=== PATIENT | female | born 1975 | race Asian ===

== ENCOUNTER 2017-09-30 11:07 | Day surgery (SDC) | payer BC ==
[~2017-09-30 11:07] MED LIST: Buffered Lidocaine 0.9% SYRIN* 5 ML/SYR SYRINGE INTRADERM ONE; Dexamethasone TAB* 4 MG PO ONE; DiMENhydriNATE IV* 50 MG/ML VIAL IV PUSH PRN; Famotidine IV* 10 MG/ML 2 ML (20 mg) IV ONE; Morphine INJ* 2 MG/ML 1 ML CARPUJECT IV PRN; Naloxone* 0.4 MG/ML 1 ML VIAL IV PRN; Ondansetron TAB* 4 MG PO ONE; PROCHLORPERAZINE INJ 5 MG/ML 2 ML VIAL IV PRN; Scopolamine 1.5 mg* PATCH TRANSDERM PRN; fentaNYL* 50 MCG/ML 2 ML VIAL (100 MCG VIAL) IV PRN; oxyCODONE/Acetamin 5/325 MG* TAB PO PRN
[2017-09-30] MEDS ORDERED: Buffered Lidocaine 0.9% SYRIN* 5 ML/SYR SYRINGE ONE (11:27)
[2017-09-30] MEDS ORDERED: Ondansetron ODT TAB* 4 MG ONE (11:27)
[2017-09-30] MEDS ORDERED: Famotidine IV* 10 MG/ML 2 ML (20 mg) ONE (11:27)
[2017-09-30] MEDS ORDERED: Dexamethasone TAB* 4 MG ONE (11:27)
[2017-09-30] MEDS ORDERED: Midazolam* 1 MG/ML 5 ML VIAL (5 MG) ONE (12:03)
[2017-09-30] MEDS ORDERED: fentaNYL* 50 MCG/ML 2 ML VIAL (100 MCG VIAL) ONE ×2 (12:03→15:41)
[2017-09-30] MEDS ORDERED: Lidocaine 4% TOPICAL* 50 ML TOP.SOLN ONE (14:19)
[2017-09-30] MEDS ORDERED: Lidocain 1% EPI 1:100,000 * 30 ML MDV ONE (14:19)
[2017-09-30] MEDS ORDERED: Oxymetazoline 0.05% NASAL SPR* 15 ML BTL ONE (14:19)
[2017-09-30] MEDS ORDERED: Propofol* 10 MG/ML 20 ML BTL IV PUSH ONE (15:02)
[2017-09-30] MEDS ORDERED: Lidocaine 2% PF * 5 ML VIAL ONE (15:02)
[2017-09-30] MEDS ORDERED: PROCHLORPERAZINE INJ 5 MG/ML 2 ML VIAL ONE (15:02)
[2017-09-30] MEDS ORDERED: oxyCODONE/Acetamin 5/325 MG* TAB ONE (15:37)
[2017-09-30] MEDS ORDERED: Scopolamine 1.5 mg* PATCH ONE (15:37)
[2017-09-30] MEDS ORDERED: Ibuprofen TAB* 400 MG ONE (15:41)
[2017-09-30 16:22] VITALS: BP 133/83
--- NOTE | 2017-10-01 08:58 | OP ---
DATE OF OPERATION: 09/30/17 - SDS DATE OF : 79. ANESTHESIA: Laryngeal mask airway anesthesia. SURGEON: John Marr MD PRE-OP DIAGNOSIS: Left sphenoidal sinusitis. POST-OP DIAGNOSIS: Left sphenoidal sinusitis. OPERATIVE PROCEDURE: Endoscopic sinus surgery with image guidance for left sphenoidotomy. COMPLICATIONS: None. DISPOSITION: Good. SPECIMEN: None. BLOOD LOSS: None. DESCRIPTION OF PROCEDURE: The patient was taken to the operating room, placed in the supine position on the operating table. General anesthesia was induced and maintained with laryngeal mask airway anesthesia. Nose was packed with cottonoids impregnated with oxymetazoline and 4% lidocaine. She was registered to the [employer] and using the image-guided sinus surgery instruments with the registered probe and suction, I performed the surgery and on the left side, I injected her middle turbinate posterior septum and lateralized the middle turbinate. I was able to go back around this to rostrum of the sphenoidal sinus and using the guided probe, confirmed the anterior wall of the sphenoid sinus and I was able to find the ostium. I used the mushroom punch to widen this and passed the scope in to look around. There was no tissue that I felt needed removal. The patient tolerated the procedure well, no complications, transferred to the recovery room in stable condition. [id number]/[facility] #: [id number] [facility]OSPITALGloria
[2017-10-03] MEDS ORDERED: Scopolamine PATCH Remove* 1 NOTE MISC PATCH OFF ONE (05:41)
== END 2017-09-30 16:38 | disposition home or self-care (01) ==
LOC: OR 11:07
PROVIDERS: ATTEND Otolaryngology
DX: J32.3 Chronic sphenoidal sinusitis (principal); J30.9 Allergic rhinitis, unspecified
CPT/HCPCS: 81025; A9270-GY; J0780; J2250; J2704; J3010; J8540

== ENCOUNTER → 2018-04-16 11:31 | Emergency (ER) | payer BC ==
[2018-04-16 12:03] LABS: Urine Appearance Clear; Urine Bilirubin Negative (Negative); Urine Blood Negative (Negative); Urine Color Straw; Urine Glucose Negative (Negative); Urine Ketones Negative (Negative); Urine Nitrite Negative (Negative); Urine Protein Negative (Negative); Urine Specific Gravity 1.003 (1.010-1.030); Urine Urobilinogen Negative (Negative)
--- OUTSIDE RECORDS SUMMARY | 2018-04-16 12:06 | XMS REPORT | Continuity of Care Document ---
:1975 External Reference #:[id number] Author Name Marilee Rosales Care Team Providers Name Role Phone Cathi Anderson MD Primary Care Physician Unavailable Payers Type Date Identification Numbers Payment Provider Subscriber Policy Number: [id number] [employer]ets Mirna Griffin PayID: [id number] [address] [address] [place] [id number] Advance Directives Description No Information Available Problems Date Description Provider Status Onset: 08/10/2017 Abnormal results function studies of Lamont Hopper M.D. Active central nervous system Family History Date Family Member(s) Problem(s) Comments General Osteoporosis General Stomach Cancer Father Osteoporosis Father Hypertension Father Diabetes Father Stroke Mother Heart Disease Siblings 3 Social History Type Date Description Comments Sex Unknown Marital Status Single Occupation [employer] ETOH Use Denies alcohol use Tobacco Use Start: Unknown Patient has never smoked Recreational Drug Use Denies Drug Use Smoking Status Reviewed: 03/22/18 Patient has never smoked Exercise Type/Frequency Exercises regularly Allergies, Adverse Reactions, Alerts Description No Known Drug Allergies Medications Medication Date Status Form Strength Qnty SIG Indications Ordering Provider Magnesium 01/31/ Active Tablets 500mg 60tab take one 2017 s capsule/tab Lyubov, let daily M.D. by mouth Iron Chews 01/31/ Active Chewtabs 15mg 90uni take one Pediatric 2017 ts capsule/tab Lyubov, let daily M.D. by mouth Ointment Jar 10/20/ Active Misc 2Oz 1unit Natural cbd 2017 s oil Use Lyubov, daily to M.D. help chronic pain and myalgias Naltrexone HCL 10/20/ Active Powder 15gm 4.5 mg 2017 compounded Lyubov, in capsules M.D. by mouth every day Magnesium Oxide 10/09/ Active Tablets 400mg 90tab 1 by mouth G43.009 Lamont S. 2018 s every day Idalia Hopper Riboflavin 10/09/ Active Tablets 400mg 90tab 1 by mouth G43.009 Lamont Tineo 2017 s every day Idalia Hopper Cytomel 01/08/ Hx Tablets 25mcg Lamont Tineo 2017 - Ruchi MGinger 2017 Wellbutrin SR 10/09/ Hx Tablets ER 100mg 30tab 1 po qam R53.83 Lamont Tineo 2017 - 12HR carey Hopper MReneeDRenee 2017 No Active 09/21/ Hx Unknown Medications 2017 - 2017 No Active 06/12/ Hx Unknown Medications 2017 - 2017 Levothyroxine / Hx Tablets 50mcg 1 by mouth Unknown Sodium 0000 - every day (not 2018 taking) Multivitamin // Hx Tablets 1 by mouth Unknown Adult 0000 every day [place] 3-6-9 00/00/ Hx Capsules Unknown Complex 0000 Bone Density / Hx Tablets 300-200mg- Unknown 0000 Unit Turmeric / Hx Capsules Unknown 0000 Magnesium // Hx Capsules otc once a Unknown 0000 day pt states she has not been taking Omeprazole / Hx Capsules 40mg 1 by mouth Unknown 0000 [address] every day Vitamin B-2 / Hx Tablets 100mg 4 by mouth Unknown 0000 - every day 2017 Immunizations CPT Code Status Date Vaccine Lot # [id number] Given 01/20/2018 Influenza Virus Vaccine, Quadrivalent, Split, [id number] Preservative Free Vital Signs Date Vital Result Comment 03/22/2018 8:25am Height 66 inches 5'6" Weight 126.25 lb Heart Rate 76 /min BP Systolic Sitting 106 mmHg Rue reg cuff BP Diastolic Sitting 76 mmHg Rue reg cuff Respiratory Rate 16 /min O2 % BldC Oximetry 98 % On Ra BMI (Body Mass Index) 20.4 kg/m2 01/20/2018 12:53pm Height 66 inches 5'6" Weight 130.00 lb Heart Rate 84 /min BP Systolic Sitting 92 mmHg BP Diastolic Sitting 66 mmHg Respiratory Rate 14 /min Pain Level 8 BMI (Body Mass Index) 21.0 kg/m2 01/08/2018 3:51pm Height 66 inches 5'6" Weight 130.50 lb Heart Rate 60 /min BP Systolic 90 mmHg BP Diastolic 70 mmHg BMI (Body Mass Index) 21.1 kg/m2 01/04/2018 9:08am Height 66 inches 5'6" Weight 133.12 lb Heart Rate 78 /min BP Systolic Sitting 110 mmHg Lue regular cuff BP Diastolic Sitting 72 mmHg Lue regular cuff Respiratory Rate 12 /min O2 % BldC Oximetry 98 % BMI (Body Mass Index) 21.5 kg/m2 Neck Circumference in inches 13 10/20/2017 1:45pm Height 66 inches 5'6" Weight 131.25 lb Heart Rate 68 /min BP Systolic Sitting 108 mmHg BP Diastolic Sitting 68 mmHg Pain Level 8 O2 % BldC Oximetry 97 % BMI (Body Mass Index) 21.2 kg/m2 10/09/2017 3:07pm Height 66 inches 5'6" Weight 132.12 lb Heart Rate 68 /min BP Systolic 110 mmHg BP Diastolic 64 mmHg BMI (Body Mass Index) 21.3 kg/m2 09/21/2017 10:19am Height 66 inches 5'6" Weight 132.00 lb Heart Rate 72 /min BP Systolic 114 mmHg BP Diastolic 78 mmHg Respiratory Rate 16 /min Body Temperature 99.0 F BMI (Body Mass Index) 21.3 kg/m2 08/20/2017 2:46pm Height 66 inches 5'6" Weight 132.50 lb Heart Rate 80 /min BP Systolic 110 mmHg BP Diastolic 70 mmHg Body Temperature 100.0 F O2 % BldC Oximetry 98 % BMI (Body Mass Index) 21.4 kg/m2 08/10/2017 2:08pm Height 66 inches 5'6" Weight 128.00 lb Heart Rate 76 /min BP Systolic 112 mmHg BP Diastolic 80 mmHg Respiratory Rate 14 /min BMI (Body Mass Index) 20.7 kg/m2 06/22/2017 1:50pm Height 66 inches 5'6" Weight 131.25 lb Heart Rate 72 /min BP Systolic Sitting 108 mmHg BP Diastolic Sitting 73 mmHg Respiratory Rate 14 /min Pain Level 7 BMI (Body Mass Index) 21.2 kg/m2 06/12/2017 10:28am Height 66 inches 5'6" Weight 132.38 lb Heart Rate 72 /min BP Systolic Sitting 140 mmHg BP Diastolic Sitting 84 mmHg Respiratory Rate 14 /min Pain Level 6 BMI (Body Mass Index) 21.4 kg/m2 Results Test Date Facility Test Result H/L Range Note Laboratory test 01/20/2018 [facility] Vitamin D TNP () [address] 1,25[place] [address] [phone] 1,25 Dihydroxy 01/20/2018 [facility] Vitamin D 1,25 48 pg/mL 18-[address] (Oh) 2, [place] [address] [phone] Vitamin D3 1,25 (Oh) 2 48 pg/mL Vitamin D2 1,25 (Oh) 2 <8 pg/mL 2 Vitamin B6 01/20/2018 [facility] Pyridoxal 69 g/L Abnormal 5 -[address] 5[place] [address] [phone] Pyridoxic Acid 20 g/L 3-30 4 Laboratory test 01/20/2018 [facility] Vitamin B1 153 nmol/L 70-[address] (Whole Blood) [place] [address] [phone] T3 Reverse 9.9 ng/dL Abnormal 10-24 6 Retic Count 01/20/2018 [facility] Retic Count 0.6 % N 0.5-1.[address] [place] [address] [phone] Corrected Retic Count 0.5 % N 0.5-1.5 Maturation Factor Retic 1.5 Retic Index 0.30 Mean Retic Volume 98.7 Immature Retic Fraction 0.19 RBC Retic Count 4.48 10^6/uL Low 4.6-6.2 Hematocrit for Retic CNT 36 % N 35-47 Laboratory test 01/20/2018 [facility] Creatine 56 U/L N 10- [address] Kinase(CK) [place] [address] [phone] CBC Auto Diff 01/20/2018 [facility] White Blood 8.3 N 3.5- 10.[address] Count 10^3/[place] [address] [phone] Red Blood Count 4.48 10^6/uL N 4.00-5.40 Hemoglobin 12.0 g/dL N 12.0-16.0 Hematocrit 37 % N 35-47 Mean Corpuscular Volume 82 fL N 80-97 Mean Corpuscular Hemoglobin 27 pg N 27-31 Mean Corpuscular HGB Conc 33 g/dL N 31-36 Red Cell Distribution Width 13 % N 10.5-15 Platelet Count 167 10^3/uL N 150-450 Mean Platelet Volume 10.6 um3 High 7.4-10.4 Abs Neutrophils 5.8 10^3/uL N 1.5-7.7 Abs Lymphocytes 1.5 10^3/uL N 1.0-4.8 Abs Monocytes 0.8 10^3/uL N 0-0.8 Abs Eosinophils 0.1 10^3/uL N 0-0.6 Abs Basophils 0 10^3/uL N 0-0.2 Abs Nucleated RBC 0 10^3/uL Granulocyte % 69.9 % N 38-83 Lymphocyte % 18.2 % Low 25-47 Monocyte % 9.9 % High 0-7 Eosinophil % 1.7 % N 0-6 Basophil % 0.3 % N 0-2 Nucleated Red Blood Cells % 0 Iron & Iron Binding 01/20/2018 [facility] Iron 43 g/dL Low 50-212 [address] [place] [address] [phone] Unsaturated Iron Binding < 353 g/dL Total Iron Binding Capacity 368 g/dL N 250-450 Transferrin 263 mg/dL N 203-362 % Iron Saturation 12 % Low 15-55 Laboratory test 01/20/2018 [facility] Ferritin 34.9 ng/mL N 11 -307 [address] [place] [address] [phone] Osmolality Serum 290 mOsm/kg N 275-295 Magnesium 1.7 mg/dL Low 1.9-2.7 Basic Metabolic Panel 01/20/2018 [facility] Sodium 138 mmol/L N 135-[address] [place] [address] [phone] Potassium 3.8 mmol/L N 3.5-5.0 Chloride 106 mmol/L N 101-111 Co2 Carbon Dioxide 25 mmol/L N 22-32 Anion Gap 7 mmol/L N 2-11 Glucose 101 mg/dL High 70-100 Blood Urea Nitrogen 7 mg/dL N 6-24 Creatinine 0.71 mg/dL N 0.51-0.95 BUN/Creatinine Ratio 9.9 N 8-20 Calcium 8.8 mg/dL N 8.6-10.3 Egfr Non- 91.2 >60 Egfr 110.3 >60 7 Laboratory test 01/20/2018 [facility] Vitamin B1 153 nmol/L 70-[address] (Whole Blood) [place] [address] [phone] T3 Total 165 ng/dL N 87-178 T3 Reverse 9.9 ng/dL Abnormal 10-24 9 Thyroperoxidase AB 0.59 IU/mL N <9 Vitamin B6 01/20/2018 [facility] Pyridoxal 69 g/L Abnormal 5 -[address] 5[place] [address] [phone] Pyridoxic Acid 20 g/L 3-30 11 Laboratory test 01/20/2018 [facility] Vitamin D, 1,25 TNP () [address] [place] [address] [phone] Vitamin B12 And 01/20/2018 [facility] Vitamin B12 598 pg/mL N 180-914 13 Folate Serum [address] [place] [address] [phone] Folic Acid (Folate) 19.53 ng/mL >3.99 Laboratory test 01/20/2018 [facility] TSH (Thyroid 0.55 mcIU/mL N 0.34-5.60 [address] [facility] Stim [place]orm) [place] [address] [phone] T3 Free 4.20 pg/mL High 2.5-3.9 Free T4 (Free Thyroxine) 0.48 ng/dL Low 0.61-1.12 Urine 10/25/2017 [facility] Aminolevulinic 4 nmol/mL <=15 14 Aminolevulinic 101 [facility] [place] [place] [address] [phone] Urine Ala Interp See Comment 15 Ala Reviewed by See Comment 16 Amino Acid Screen 10/20/2017 [facility] Taurine 80 nmol/mL 42 -[address] [place] [address] [phone] Phosphoserine 0 nmol/mL <18 Threonine 99 nmol/mL 85-231 Phosphoethanolamine 3 nmol/mL <12 Serine 127 nmol/mL 63-187 Hydroxyproline 19 nmol/mL 4-29 Asparagine 68 nmol/mL 37-92 Aspartic Acid 3 nmol/mL <7 Glutamic Acid 42 nmol/mL 13-113 Ethanolamine 7 nmol/mL <67 Glutamine 655 nmol/mL 371-957 Sarcosine 2 nmol/mL <5 Proline 193 nmol/mL 97-368 1 Methylhistidine 6 nmol/mL <28 Glycine 289 nmol/mL 126-490 3-Methylhistidine 3 nmol/mL 2-9 Alanine 418 nmol/mL 200-579 Carnosine 0 nmol/mL <1 Citrulline 25 nmol/mL 17-46 Anserine 0 nmol/mL <1 D-Chhqy-T-Butyric Acid 17 nmol/mL 9-37 Homocitrulline 0 nmol/mL <2 Valine 250 nmol/mL 136-309 A-Aminoadipic Acid 1 nmol/mL <3 Cystine 32 nmol/mL 3-95 Unxyc-ivnjn-w-butyric 0 nmol/mL <2 Methionine 26 nmol/mL 4-44 B-Aminoisobutyric Acid 1 nmol/mL <5 Isoleucine 69 nmol/mL 36-107 Hydroxylysine 1 nmol/mL <2 Leucine 104 nmol/mL 68-183 Cystathionine <1 nmol/mL <5 Tyrosine 69 nmol/mL 31-90 Tryptophan 54 nmol/mL 29-77 Phenylalanine 79 nmol/mL 35-80 B-Alanine 16 nmol/mL <29 Ornithine 107 nmol/mL 38-130 Lysine 167 nmol/mL 103-255 Histidine 91 nmol/mL 39-123 Arginine 54 nmol/mL 32-120 Argininosuccinic Acid 0 nmol/mL <2 Allo-Isoleucine 1 nmol/mL <5 Amino Acid Quant Result See Comment 17 Laboratory test 10/20/2017 [facility] Zinc Serum 0.80 g/mL 0.66-1.10 18 [address] [place] [address] [phone] Copper, Serum 1.31 g/mL 0.75-1.45 19 Ceruloplasmin 35.7 mg/dL 20 TSH (Thyroid Stim Horm) 5.42 mcIU/mL N 0.34-5.60 Basic Metabolic Panel 10/20/2017 [facility] Sodium 138 mmol/L N 135-[address] [place] [address] [phone] Potassium 4.0 mmol/L N 3.5-5.0 Chloride 105 mmol/L N 101-111 Co2 Carbon Dioxide 20 mmol/L Low 22-32 Anion Gap 13 mmol/L High 2-11 Glucose 104 mg/dL High 70-100 Blood Urea Nitrogen 6 mg/dL N 6-24 Creatinine 0.73 mg/dL N 0.51-0.95 BUN/Creatinine Ratio 8.2 N 8-20 Calcium 9.4 mg/dL N 8.6-10.3 Egfr Non- 88.8 >60 Egfr 107.4 >60 21 Sodium Excretion 10/20/2017 [facility] Creatinine 0.71 mg/dL N 0.51-0.[address] [place] [address] [phone] Sodium, Serum 139 mmol/L N 135-145 Urine Random Creatinine 59.07 mg/dL Urine Random Sodium 178 mmol/L Renal Sodium Excretion 1.53 % 22 Laboratory test 09/17/2017 [facility] CSF Glucose 60 mg/dL N 40-[address] [place] [address] [phone] CSF Protein 28 mg/dL N 15-45 CSF Culture & 09/17/2017 [facility] CSF Culture SEE RESULT [address] [place] [place] [address] [phone] CSF Cell Count 09/17/2017 [facility] Body Fluid Cerebral [address] [place] [address] [phone] Body Fluid Appearance Clear Body Fluid Color Colorless CSF Tube # 4 Body Fluid Volume 8 mL Body Fluid WBC 1 /mcL Body Fluid RBC 0 /mcL Body Fluid Lymph 90 % Body Fluid [place] 10 % Body Fluid Total Cells Counted 10 Body Fluid Comment (SEE NOTE) 24 Fluid Reviewed By MD (SEE NOTE) 25 CSF Immunoglobulin 09/17/2017 [facility] CSF Immunoglobulin 0.53 <=0.85 G (Igg) [address] [place] [address] [phone] CSF Igg 2.5 mg/dL <=8.1 26 CSF Albumin 15.1 mg/dL <=27.0 27 CSF IgG/Albumin Ratio 0.17 <=0.21 CSF Immunoglobulin G Synthesis 0.00 mg/24h <=12 Immunoglobulin G 1410 mg/dL 767 - 1590 Albumin 4450 mg/dL 28 Serum IgG/Albumin Ratio 0.32 <=0.40 29 Oligoclonal Bands 09/17/2017 [facility] CSF Oligoclonal [address] [place] [address] [phone] Serum Oligoclonal Bands 2 bands Oligoclonal Proteins Interpret 0 bands <4 30 CBC Auto Diff 08/20/2017 [facility] White Blood 8.7 10^3/uL N 3.5-10.[address] [place] [address] [phone] Red Blood Count 4.48 10^6/uL N 4.0-5.4 Hemoglobin 11.9 g/dL Low 12.0-16.0 Hematocrit 36 % N 35-47 Mean Corpuscular Volume 81 fL N 80-97 Mean Corpuscular Hemoglobin 27 pg N 27-31 Mean Corpuscular HGB Conc 33 g/dL N 31-36 Red Cell Distribution Width 14 % N 10.5-15 Platelet Count 175 10^3/uL N 150-450 Mean Platelet Volume 10.6 um3 High 7.4-10.4 Abs Neutrophils 5.3 10^3/uL N 1.5-7.7 Abs Lymphocytes 2.3 10^3/uL N 1.0-4.8 Abs Monocytes 0.9 10^3/uL High 0-0.8 Abs Eosinophils 0.2 10^3/uL N 0-0.6 Abs Basophils 0 10^3/uL N 0-0.2 Abs Nucleated RBC 0 10^3/uL Granulocyte % 60.7 % N 38-83 Lymphocyte % 26.0 % N 25-47 Monocyte % 10.5 % High 0-7 Eosinophil % 2.5 % N 0-6 Basophil % 0.3 % N 0-2 Nucleated Red Blood Cells % 0 Fatty Acid 08/20/2017 [facility] Lauric Acid 84 nmol/mL 6-[address] C12:0 [place] [address] [phone] Myristic Acid C14:0 250 nmol/mL 30-450 Hexadecenoic Acid C16:1w9 59 nmol/mL 25-105 Palmitoleic Acid C16:1w7 175 nmol/mL 110-1130 Palmitic Acid C16:0 2589 nmol/mL 3967-1219 g-Linolenic Acid C18:3w6 102 nmol/mL 16-150 a-Linolenic Acid C18:3w3 93 nmol/mL 50-130 Linoleic Acid C18:2w6 2177 nmol/mL Abnormal 8360-0259 Oleic Acid C18:1w9 2938 nmol/mL 650-3500 Vaccenic Acid C18:1w7 233 nmol/mL Abnormal 280-740 Stearic Acid C18:0 1006 nmol/mL 590-1170 Epa C20:5w3 85 nmol/mL 14-100 Arachidonic Acid C20:4w6 586 nmol/mL 520-1490 [place] Acid C20:3w9 32 nmol/mL Abnormal 7-30 t-x-[id number] Acid C20:3w6 129 nmol/mL 50-250 Arachidic Acid C20:0 37 nmol/mL Abnormal 50-90 Dha C22:6w3 189 nmol/mL 30-250 Dpa C22:5w6 26 nmol/mL 10-70 Dpa C22:5w3 64 nmol/mL 20-210 Dta C22:4w6 27 nmol/mL 10-80 Docosenoic Acid C22:1 4 nmol/mL 4-13 Nervonic Acid C24:1w9 70 nmol/mL 60-100 Triene Tetraene Ratio 0.055 Abnormal 31 Total Saturated Acid 4.1 mmol/L 2.5-5.5 Total Monounsaturated Fatty Ac 3.5 mmol/L 1.3-5.8 Total Polyunsaturated Fatty Ac 3.5 mmol/L 3.2-5.8 Total w3 0.4 mmol/L 0.2-0.5 Total w6 3.0 mmol/L 3.0-5.4 Total Fatty Acids 11.1 mmol/L 7.3-16.8 Interpretation See Comment 32 Urinalysis Profile 08/20/2017 [facility] Urine Color Straw [address] [place] [address] [phone] Urine Appearance Clear Urine Specific [place] 1.011 N 1.010-1.030 Urine pH 5.0 N 5-9 Urine Urobilinogen Negative Negative Urine Ketones Negative Negative Urine Protein Negative Negative Urine Leukocytes Trace Abnormal Negative Urine Blood 1+ Abnormal Negative Urine Nitrite Negative Negative Urine Bilirubin Negative Negative Urine Glucose Negative Negative Urine White Blood Cell Trace(0-5/hpf) Absent Urine Red Blood Cell Trace(0-2/hpf) Absent Urine Bacteria Absent Absent Urine Culture And 08/20/2017 [facility] Urine Culture SEE RESULT [address] [place] [address] [phone] Laboratory test 08/12/2017 [facility] Lactic Acid 0.9 mmol/L N 0.5-[address]0 [place] [address] [phone] Pyruvic Acid 08/12/2017 [facility] Pyruvic Acid 0.10 mmol/L 0.08- [address] mmol/L 0.16 [place] [address] [phone] Pyruvic Acid mg/dL 0.9 mg/dL 0.7-1.4 35 Laboratory test 08/10/2017 [facility] Lactic Acid 0.7 mmol/L N 0.5-2.[address] [place] [address] [phone] Creatine Kinase(CK) 41 U/L N 10-223 Immunoglobulins 06/26/2017 [facility] Immunoglobulin G 1210 767 - 37 Serum Quant 101 mg/dL 1590 [place] [address] [phone] Immunoglobulin M 129 mg/dL 37 - 286 Immunoglobulin A 180 mg/dL 61 - 356 Basic Metabolic 06/26/2017 [facility] Sodium 138 mmol/L Low 139-[address] [place] [address] [phone] Potassium 4.4 mmol/L N 3.5-5.0 Chloride 104 mmol/L N 101-111 Co2 Carbon Dioxide 28 mmol/L N 22-32 Anion Gap 6 mmol/L N 2-11 Glucose 88 mg/dL N 70-100 Blood Urea Nitrogen 6 mg/dL N 6-24 Creatinine 0.69 mg/dL N 0.51-0.95 BUN/Creatinine Ratio 8.7 N 8-20 Calcium 9.2 mg/dL N 8.6-10.3 Egfr Non- 94.7 >60 Egfr 121.8 >60 38 Lipid Profile 06/26/2017 [facility] Triglycerides 87 mg/dL 39 (Trig/Chol/HDL) [address] [place] [address] [phone] Cholesterol 206 mg/dL 40 HDL Cholesterol 52.4 mg/dL 41 LDL Cholesterol 136 mg/dL 42 Jeannette Igg AB Reflex 06/12/2017 [facility] SS-A/Ro Antibody <0.[address] [place] [address] [phone] SS-B/La Antibody <0.2 U 44 Sm (Blum) IgG Antibody <0.2 U 45 U1-nRNP Antibody 0.2 U 46 Scl-70 (Scleroderma) Antibody 0.2 U 47 Jazzy-1 Antibody <0.2 U 48 Laboratory test 06/12/2017 [facility] Endomysial Abs Negative Negative [address] [place] [address] [phone] Hla B27 06/12/2017 [facility] Hla B27 Negative [address] [place] [address] [phone] Hla B27 Interp See Comment 51 Laboratory test 06/12/2017 [facility] Uric Acid 4.2 mg/dL N 2.3-6.[address] [place] [address] [phone] Rheumatoid Factor <10 IU/mL 0-14 52 Cyclic Citrullinated Pep Igg <15.6 U 53 Vitamin D, 1,25 Dihydroxy 70 pg/mL 18-78 54 Bone Alkaline Phosphatase, S 6.4 g/L 55 Serotonin Serum 144 ng/mL <=230 56 Food Allergy 06/12/2017 [facility] Egg White <0.35 kU/L [address] [place] [address] [phone] [place] Allergen IgE <0.35 kU/L 58 Egg Yolk Allergen IgE <0.35 kU/L 59 Peanut Allergen IgE <0.10 kU/L 60 Soybean Allergen IgE <0.35 kU/L 61 Wheat Allergen IgE <0.35 kU/L 62 Laboratory test 06/12/2017 [facility] Cow's Milk <0.35 kU/L [address] [place] [address] [phone] Cardiolipin 06/12/2017 [facility] Phospholipid Ab < 9.4 MPL 64 Igg/Igm [address] IgM, [place] [address] [phone] Phospholipid Ab IgG < 9.4 GPL 65 Laboratory test 06/12/2017 [facility] Ach Receptor 0.00 nmol/L <=0.[address] [place] [address] [phone] Anti Double Stranded Dna AB <12.3 IU/mL 67 Complement C3 88 mg/dL 75 - 175 68 Complement C4 19 mg/dL 14 - 40 69 Anca AB Ser If 06/12/2017 [facility] C-Anca Negative Negative [address] [place] [address] [phone] P-Anca Negative Negative 70 Laboratory test 06/12/2017 [facility] Creatine 61 U/L N 10- [address] Kinase(CK) [place] [address] [phone] Angiotensin Converting Enzyme 55 U/L Abnormal 8 - 53 71 Celiac Hla 06/12/2017 [facility] Hla-Dqa1 SEE BELOW [address] [place] [address] [phone] Hla-[id number] SEE BELOW 73 Celiac Gene Pairs Present? Equivocal Celiac Gene Interpretation See Comment 74 Celiac Panel 06/12/2017 [facility] Tissue Transglutaminase <1.2 U/mL [address] [place] [address] [phone] Immunoglobulin A 173 mg/dL 61 - 356 Celiac Interpretation See Comment 76 1 1,25-Dihydroxyvitamin D, S was cancelled on 01/28/2018 at 09:15; Assay temporarily down. Specimen forwarded to [facility] Test Performed by: [facility] [address] [place] [address] 2 Vitamin D3, 1,25(OH) indicates both endogenous production and supplementation. Vitamin D2, 1,25(OH)2 is an indicator of exogenous sources, such as diet or supplementation. Interpretation and therapy are based on measurement of Vitamin D, 1,25 (OH)2, Total. This test was developed and its analytical performance characteristics have been determined by [facility]. It has not been cleared or approved by the [place] Food and Drug Administration. This assay has been validated pursuant to the CLIA regulations and is used for clinical purposes. Test Performed at: [facility], [address] [place] [address] Cande Conley MD, PhD Test Performed by: [facility] [address] [place] [address] 3 In this sample, the elevated pyridoxal 5-phosphate is likely related to dietary supplementation. ADDITIONAL INFORMATION This test was developed and its performance characteristics determined by [facility] in a manner consistent with CLIA requirements. This test has not been cleared or approved by the U.S. Food and Drug Administration. 4 ADDITIONAL INFORMATION This test was developed and its performance characteristics determined by [facility] in a manner consistent with CLIA requirements. This test has not been cleared or approved by the U.S. Food and Drug Administration. Test Performed by: [facility] - [address] [address] 5 ADDITIONAL INFORMATION This test was developed and its performance characteristics determined by [facility] in a manner consistent with CLIA requirements. This test has not been cleared or approved by the U.S. Food and Drug Administration. Test Performed by: [facility] - [address] [address] 6 ADDITIONAL INFORMATION This test was developed and its performance characteristics determined by [facility] in a manner consistent with CLIA requirements. This test has not been cleared or approved by the U.S. Food and Drug Administration. Test Performed by: [facility] - [address] [address] 7 Because ethnic data is not always readily available, this report includes an eGFR for both -Americans and non- Americans. The National Kidney Disease Education Program (NKDEP) does not endorse the use of the MDRD equation for patients that are not between the ages of 18 and 70, are , have extremes of body size, muscle mass, or nutritional status, or are non- or non-. According to the National Kidney Foundation, irrespective of diagnosis, the stage of the disease is based on the level of kidney function: Stage Description GFR(mL/min/1.73 m(2)) 1 Kidney damage with normal or decreased GFR 90 2 Kidney damage with mild decrease in GFR 60-89 3 Moderate decrease in GFR 30-59 4 Severe decrease in GFR 15-29 5 Kidney failure <15 (or dialysis) 8 ADDITIONAL INFORMATION This test was developed and its performance characteristics determined by [facility] in a manner consistent with CLIA requirements. This test has not been cleared or approved by the U.S. Food and Drug Administration. Test Performed by: [facility] [place] [address] 9 ADDITIONAL INFORMATION This test was developed and its performance characteristics determined by [facility] in a manner consistent with CLIA requirements. This test has not been cleared or approved by the U.S. Food and Drug Administration. Test Performed by: [facility] [place] [address] 10 In this sample, the elevated pyridoxal 5-phosphate is likely related to dietary supplementation. ADDITIONAL INFORMATION This test was developed and its performance characteristics determined by [facility] in a manner consistent with CLIA requirements. This test has not been cleared or approved by the U.S. Food and Drug Administration. 11 ADDITIONAL INFORMATION This test was developed and its performance characteristics determined by [facility] in a manner consistent with CLIA requirements. This test has not been cleared or approved by the U.S. Food and Drug Administration. Test Performed by: [facility] [place] [address] 12 1,25-Dihydroxyvitamin D, S was cancelled on 01/28/2018 at 09:15; Assay temporarily down. Specimen forwarded to [facility] Test Performed by: [facility] - [address] [address] 13 Normal Range 180 to 914 Indeterminate Range 145 to 180 Deficient Range <145 14 START COLLECTION TIME 10/25/2017 @ 0700 eND COLLECTION TIME 10/26/2017 @ 0700 15 In this sample, the excretion of aminolevulinic acid was normal. ADDITIONAL INFORMATION Liquid Chromatography-Tandem Mass Spectrometry (LC-MS/MS) This test was developed and its performance characteristics determined by [facility] in a manner consistent with CLIA requirements. This test has not been cleared or approved by the U.S. Food and Drug Administration. 16 RESULT: Mercedez Mc M.D. Test Performed by: [facility] - [address] [address] 17 RESULT: In this sample, the amino acid profile was normal. ADDITIONAL INFORMATION Liquid Chromatography-Tandem Mass Spectrometry (LC-MS/MS) This test was developed and its performance characteristics determined by [facility] in a manner consistent with CLIA requirements. This test has not been cleared or approved by the U.S. Food and Drug Administration. Test Performed by: [facility] - [address] [address] 18 ADDITIONAL INFORMATION This test was developed and its performance characteristics determined by [facility] in a manner consistent with CLIA requirements. This test has not been cleared or approved by the U.S. Food and Drug Administration. Test Performed by: [facility] - [address] [address] 19 ADDITIONAL INFORMATION This test was developed and its performance characteristics determined by [facility] in a manner consistent with CLIA requirements. This test has not been cleared or approved by the U.S. Food and Drug Administration. Test Performed by: [facility] - [facility] [address] [place] [address] 20 REFERENCE VALUE 20.0 - 51.0 Test Performed by: [facility] - [facility] [address] [place] [address] 21 Because ethnic data is not always readily available, this report includes an eGFR for both -Americans and non- Americans. The National Kidney Disease Education Program (NKDEP) does not endorse the use of the MDRD equation for patients that are not between the ages of 18 and 70, are , have extremes of body size, muscle mass, or nutritional status, or are non- or non-. According to the National Kidney Foundation, irrespective of diagnosis, the stage of the disease is based on the level of kidney function: Stage Description GFR(mL/min/1.73 m(2)) 1 Kidney damage with normal or decreased GFR 90 2 Kidney damage with mild decrease in GFR 60-89 3 Moderate decrease in GFR 30-59 4 Severe decrease in GFR 15-29 5 Kidney failure <15 (or dialysis) 22 Fractional excretion of sodium in acute renal failure(FENa): If FENa is greater than 4%, consider PostRenal Failure Prerenal Failure Less than 1% Acute Tubular Necrosis Greater than 4% PostRenal Failure Greater than 4% 23 SEE RESULT BELOW Name: MIRNA GRIFFIN : [address]: Ezequiel Schilling MD Acct: [id number] Unit: [id number] AGE: 41 Location: PAIN Re09/17/17 SEX: F Status: REG REF SPEC: [id number] IVAN: 09/17/[address] [facility] [address]: Ezequiel Schilling MD REQ: [id number] RECD: 09/17/17 STATUS: YASMIN SUTTON DR: Wojciech Anderson MD _ SOURCE: CSF SPDESC: ORDERED: CSF Cult/GS Procedure Result Reported Site CSF Gram Stain Final 09/17/17- 1002 ML No Neutrophils Observed No Organisms Seen Preparation By Cytospin Smear CSF Culture Final 09/21/17- 0845 ML No Growth Day 4 * ML - Main Lab . END OF REPORT DEPARTMENT OF PATHOLOGY, [address] [place] [address] Raymundo Field M.D. Director [facility] # [id number] 24 Diff done on concentrated smear 25 No evidence of an acute inflammatory response. No evidence of malignancy. Reviewed by Jeanette Stephenson MD 26 ADDITIONAL INFORMATION This test has been modified from the landfill gas collection system operator's instructions. Its performance characteristics were determined by [facility] in a manner consistent with CLIA requirements. This test has not been cleared or approved by the U.S. Food and Drug Administration. 27 ADDITIONAL INFORMATION This test has been modified from the landfill gas collection system operator's instructions. Its performance characteristics were determined by [facility] in a manner consistent with CLIA requirements. This test has not been cleared or approved by the U.S. Food and Drug Administration. 28 REFERENCE VALUE 3200 - 4800 29 Test Performed by: [place] [address] 30 The oligoclonal band assay detected 3 or fewer unique IgG bands in the CSF. This is a negative result. Test Performed by: [facility] [place] [place] [address] 31 REFERENCE VALUE 0.010-0.038 32 In this sample, the concentration of linoleic acid was reduced. The triene/tetraene ratio was elevated. These findings are suggestive of a nutritional deficiency of essential fatty acids. ADDITIONAL INFORMATION Gas Chromatography-Mass Spectrometry (GC-MS) Stable Isotope Dilution Analysis This test was developed and its performance characteristics determined by [facility] in a manner consistent with CLIA requirements. This test has not been cleared or approved by the U.S. Food and Drug Administration. Test Performed by: [facility] - [address] [address] 33 SEE RESULT BELOW Name: MINRA GRIFFIN : [address]: Wojciech Mcarthur MD Acct: [id number] Unit: [id number] AGE: 41 Location: LAB Re08/20/17 SEX: F Status: REG REF SPEC: [id number] IVAN: 08/20/17-[address] [facility] [address]: Wojciech Mcarthur MD REQ: [id number] RECD: 08/20/174934 STATUS: COMP _ SOURCE: URINE SPDESC: ORDERED: Urine Culture Procedure Result Reported Site Urine Culture Final 08/22/17- 830 ML Organism 1 STAPHYLOCOCCUS AUREUS [place] Count 50-75,000 (Many) CFU/ML 1. STAPHYLOCOCCUS AUREUS M.I.C. RX --------- ------ Penicillin 0.12 S Gentamicin <=0.5 S Linezolid 2 S Nitrofurantoin 32 S Oxacillin 0.5 S * Quinupristin/Dalfopristin <=0.25 S Rifampin <=0.5 S Tetracycline >=16 R Trimethoprim/Sulfamethoxazole <=10 S Vancomycin 1 S Imipenem-Deduced S * Ampicillin/Sulbactam-Deduced S Cefazolin-Deduced S * These antibiotics are not available in the [facility] Formulary Contact the Microbiology Department for any additional antibiotic reporting. * ML - Main Lab . END OF REPORT DEPARTMENT OF PATHOLOGY, [address] [place] [address] Raymundo Field M.D. Director [facility] # [id number] 34 [facility] Severe Sepsis and Septic Shock Management Bundle Measure requires all lactic acids initially measuring >2.0 mmol/L be repeated. 35 ADDITIONAL INFORMATION This test was developed and its performance characteristics determined by [facility] in a manner consistent with CLIA requirements. This test has not been cleared or approved by the U.S. Food and Drug Administration. Test Performed by: [address] [address] 36 [facility] Severe Sepsis and Septic Shock Management Bundle Measure requires all lactic acids initially measuring >2.0 mmol/L be repeated. 37 Test Performed by: [address] [address] 38 Because ethnic data is not always readily available, this report includes an eGFR for both -Americans and non- Americans. The National Kidney Disease Education Program (NKDEP) does not endorse the use of the MDRD equation for patients that are not between the ages of 18 and 70, are , have extremes of body size, muscle mass, or nutritional status, or are non- or non-. According to the National Kidney Foundation, irrespective of diagnosis, the stage of the disease is based on the level of kidney function: Stage Description GFR(mL/min/1.73 m(2)) 1 Kidney damage with normal or decreased GFR 90 2 Kidney damage with mild decrease in GFR 60-89 3 Moderate decrease in GFR 30-59 4 Severe decrease in GFR 15-29 5 Kidney failure <15 (or dialysis) 39 Desirable: <150 Borderline High: 150-199 High: 200-499 Very High: >500 40 Desirable: <200 Borderline High: 200-239 High: >239 41 Low: <40 Desirable: 40-60 High: >60 42 Desirable: <100 Near Optimal: 100-129 Borderline High: 130-159 High: 160-189 Very High: >189 43 REFERENCE VALUE <1.0 (Negative) 44 REFERENCE VALUE <1.0 (Negative) 45 REFERENCE VALUE <1.0 (Negative) 46 REFERENCE VALUE <1.0 (Negative) 47 REFERENCE VALUE <1.0 (Negative) 48 REFERENCE VALUE <1.0 (Negative) Test Performed by: [facility] - [address] [address] 49 A negative serum IgA endomysial antibody is usually seen in normal individuals, however a diagnosis of celiac disease, dermatitis herpetiformis and other gluten sensitive disorders cannot be completely excluded, as this test may be negative in a subset of individuals with these disorders. If the clinical suspicion for one of these disorders is high, recommend further testing for gluten sensitivity as indicated by the Celiac Disease Comprehensive [place] ([place] Test [facility] Code CDCOM). In addition serum IgA endomysial antibody may also be negative in gluten-sensitive patients (with celiac disease, dermatitis herpetiformis or other gluten-sensitive disorders), who adhere to a strict gluten-free diet. ADDITIONAL INFORMATION This test has been modified from the landfill gas collection system operator's instructions. Its performance characteristics were determined by [facility] in a manner consistent with CLIA requirements. This test has not been cleared or approved by the U.S. Food and Drug Administration. Test Performed by: [facility] - [address] [address] 50 REFERENCE VALUE Not Applicable 51 RESULT: HLA-B27 antigen was not detected. ADDITIONAL INFORMATION Method: Flow Cytometry Performing Laboratory CLIA# [id number] Test Performed by: [address] [address] 52 Performed by [facility], [address] [place] [id number] [email or web address] Quan, Dawson Peña MD - Lab. Director Test Performed by: [facility] [address] [place] [id number] 53 REFERENCE VALUE <20.0 (Negative) Test Performed by: [facility] - [address] [address] 54 ADDITIONAL INFORMATION This test was developed and its performance characteristics determined by [facility] in a manner consistent with CLIA requirements. This test has not been cleared or approved by the U.S. Food and Drug Administration. Test Performed by: [facility] - [address] [address] 55 REFERENCE VALUE <=14 (Premenopausal) <=22 (Postmenopausal) Test Performed by: [facility] - [address] [address] 56 ADDITIONAL INFORMATION This test was developed and its performance characteristics determined by [facility] in a manner consistent with CLIA requirements. This test has not been cleared or approved by the U.S. Food and Drug Administration. Test Performed by: [facility] - [facility] [address] [place] [address] 57 Class 0 (Negative <0.35) 58 Class 0 (Negative <0.35) 59 Class 0 (Negative <0.35) 60 Class 0 (Negative <0.10) 61 Class 0 (Negative <0.35) 62 Class 0 (Negative <0.35) Test Performed by: [facility] - [place] [address] [place] [address] 63 Class 0 (Negative <0.35) 64 REFERENCE VALUE <15.0 (Negative) 65 REFERENCE VALUE <15.0 (Negative) Test Performed by: [address] [address] 66 ADDITIONAL INFORMATION This test was developed and its performance characteristics determined by [facility] in a manner consistent with CLIA requirements. This test has not been cleared or approved by the U.S. Food and Drug Administration. Test Performed by: [facility] - [address] [address] 67 REFERENCE VALUE <30.0 (Negative) Test Performed by: [address] [address] 68 Test Performed by: [address] [address] 69 Test Performed by: [address] [address] 70 Negative for cANCA and pANCA patterns by immunofluorescence. ADDITIONAL INFORMATION This test was developed and its performance characteristics determined by [facility] in a manner consistent with CLIA requirements. This test has not been cleared or approved by the U.S. Food and Drug Administration. Test Performed by: [facility] - [address] [address] 71 Test Performed by: [facility] - [address] [address] 72 RESULT: 01,02:01 REFERENCE VALUE Not Applicable 73 RESULT: 02:02,05:01 DQ Serologic Equivalent: 2,5 REFERENCE VALUE Not Applicable 74 While the patient lacks the gene pairs usually seen in celiac disease, there are rare exceptions in which celiac disease can occur with only one half of the gene pair (1% of all celiac) making celiac disease very unlikely. However, these genes can also be present in the normal population. ADDITIONAL INFORMATION Method: Molecular typing of HLA antigens performed using reverse SSOP and/or SSP methods, reported as serological equivalents and low to medium resolution molecular values. Performing Laboratory CLIA# [id number] Test Performed by: [facility] - [address] [address] 75 REFERENCE VALUE <4.0 (Negative) Test Performed by: [address] [address] 76 Negative serology. Celiac disease unlikely. However, approximately 10% of patients with celiac disease are seronegative. Also, patients who are already adhering to a gluten-free diet may be seronegative. If celiac disease is highly clinically suspected, consider HLA-DQ typing. Test Performed by: [facility] - [address] [address] Procedures Date Code Description Status 03/05/2018 31939 Polysomnography Sleep Staging 4+ Parameters Completed 01/12/2018 77680 Sleep Study Unattended,HRT Rate,Oxygen Sat,Resp Completed Effort/Airflow 09/21/2017 62423 Anoscopy Completed 07/07/2017 53839 ECHO Transthorasic Realtime 2D W Doppler & Color Flow Hosp Completed Encounters Type Date Location Provider Dx Diagnosis Office Visit 01/20/2018 Rheumatology Aretha Lee.10 Myalgia, 1:00p [facility] unspecified site D64.9 Anemia, unspecified E87.1 Hypo-osmolality and hyponatremia R53.83 Other fatigue 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 Z23 Encounter for immunization Office Visit 01/08/2018 Neurohospitalist Lamont Flores.02 Abnormal brain 3:30p Clinic Idalia Hopper scan F41.9 Anxiety disorder, unspecified Office Visit 01/04/2018 9:30a Pulmonology [facility] G47.9 Sleep disorder, [facility] unspecified Maddy R53.83 Other fatigue Office Visit 10/20/2017 2:00p Rheumatology Services Aretha Lee.1 My[facility] R51 Headache R20.8 Other disturbances of skin sensation M54.5 Low back pain E87.1 Hypo-osmolality and hyponatremia Office Visit 10/09/2017 [facility] Lamont Flores.02 Abnormal brain 3:30p Clinic Idalia Hopper scan R53.83 Other fatigue F41.9 Anxiety disorder, unspecified G43.009 Migraine w/o aura, not intractable, w/o status migrainosus Office Visit 09/21/2017 10:15a Surgical Raul Ibrahim, K64.9 Unspecified [facility], FACS hemorrhoids K64.4 Residual hemorrhoidal skin tags Office Visit 08/20/2017 2:40p Rheumatology Flynn Lee94.02 Abnormal brain [facility] scan R53.83 Other fatigue E78.00 Pure hypercholesterolemia, unspecified R10.11 Right upper quadrant pain Office Visit 08/10/2017 Garvin Lamont Tineo G43.009 Migraine w/o aura, 2:00p Neurologic Idalia Hopper not intractable, [facility] w/o status migrainosus R53.83 Other fatigue R94.02 Abnormal brain scan Office Visit 06/22/2017 1:40p Rheumatology Wojciech Mcarthur, R53.83 Other fatigue [facility] R51 Headache R76.0 Raised antibody titer M79.1 Myalgia Office Visit 06/12/2017 11:00a Rheumatology Wojciech Mcarthur, R76.0 Raised antibody [facility] titer R20.8 Other disturbances of skin sensation M79.1 Myalgia M79.673 Pain in unspecified foot M35.01 Sicca syndrome with keratoconjunctivitis M54.5 Low back pain K58.8 Other irritable bowel syndrome Plan of Treatment Future Appointment(s):05/18/2018 10:30 am - Gabriela De La Cruz DNP, RN, HIGHWAY TRUCK DRIVER- at [facility]04/22/2018 1:00 pm - Wojciech Mcarthur M.D. at [facility]ology [facility]07/02/2018 3:00 pm - Lamont Hopper M.D. at [facility]7303/22/2018 - Gabriela De La Cruz DNP, RN, HIGHWAY TRUCK DRIVER-BCG47.33 Obstructive sleep apnea (adult) (pediatric)New Orders:Sleep-Homecare, Ordered: 03/22/18ollow up:6 weeksRecommendations:Sleep apnea to start PAP at 4-7 cm Review of sleep study in detail. Review of risks of untreated sleep apnea including cardiovascular events: rhythm irregularities, heart attack, stroke; gastro esophageal reflux disease (GERD); diabetes; anxiety, depression; high blood pressure; accidents (machineryand automobile) Recommendation for PAP other treatment modalities NON-PAP including oral appliance/mandibular advancement device, positional strategies. Referral for PAP device to be sent to [facility] phone: [phone] Equipment appointment will take about 45 minutes, the DME provider will call you within 5 days to set you up for the device. If you do not hear from them call the Sleep Center. The mask will have a 30-day guarantee, if you have mask problems call the DME provider to have a fitting for a different mask. Need distilled water for humidifier CPAP mask and tubing Cleaning Wipe off mask daily (baby wipe-no scent, or warm water) Clean mask, tubing, filter, and water chamber weekly in mild no scent dish soap and water. Hang to dry. If you have problems with the air pressure call the sleep center and speak to a nurse. If you have any further questions, please call the Sleep Disorder Center at [phone]. If you have any sleepiness while driving you MUST avoid operating a vehicle or machinery.R53.83 Other fatigueRecommendations:Should improve with isjitjhguQ48.7 FibromyalgiaRecommendations:Should improve with treatment
[2018-04-16 14:01] LABS: ABS Basophils 0 10^3/ul (0-0.2); ABS Eosinophils 0.2 10^3/ul (0-0.6); ABS Lymphocytes 1.7 10^3/ul (1.0-4.8); ABS Monocytes 0.6 10^3/ul (0-0.8); ABS Neutrophils 6.6 10^3/ul (1.5-7.7); ABS Nucleated RBC 0 10^3/ul; Eosinophil % 1.8 %; Hematocrit 41 % (35-47); Hemoglobin 13.4 g/dl (12.0-16.0); Lymphocyte % 18.8 %; Mean Corpuscular HGB Conc 32 g/dl (31-36); Mean Corpuscular Hemoglobin 26 pg (27-31); Mean Corpuscular Volume 82 fL (80-97); Mean Platelet Volume 10.7 fL (7.4-10.4); Nucleated Red Blood Cells % 0; Platelet Count 189 10^3/ul (150-450); Red Blood Count 5.08 10^6/ul (4.00-5.40); Red Cell Distribution Width 15 % (10.5-15)
[2018-04-16 14:19] LABS: Albumin 4.4 g/dL (3.2-5.2); Albumin/Globulin Ratio 1.4 (1-3); BUN/Creatinine Ratio 11.5 (8-20); Calcium 9.3 mg/dL (8.6-10.3); EGFR Non-African American 81.8 (>60); Globulin 3.1 g/dL (2-4); Total Bilirubin 0.4 mg/dL (0.2-1.0); Total Protein 7.5 g/dL (6.4-8.9)
--- NOTE | 2018-04-16 14:31 | ED ---
Back Pain - HPI Summary HPI Summary: Pt is a 42 y/o F presenting to the ED with a chief complaint of back pain. Pt used painkillers 3 consecutive nights for her fibromyalgia, stopped taking them 04/13/18 when she saw blood in her urine. She is concerned it is associated w/ the Topamax she takes. Today, her urine was clear. The backache is normal for her when taking the medicine but it is now constant. She hasnt used meds her whole because shes pretty stable. - History of Current Complaint Chief Complaint: EDBackInjuryPain Stated Complaint: BLOOD IN URINE/LOWER BACK PAIN Time Seen by Provider: 04/16/18 14:16 Hx Obtained From: Patient Onset/Duration: Gradual Onset, Still Present Onset/Duration: Started Days Ago, Still Present Timing: Constant Back Pain Location: Is Discrete @ - lower back Severity Initially: Moderate Severity Currently: Severe Pain Intensity: 8 Pain Scale Used: 0-10 Numeric Character: Aching Aggravating Symptom(s): Movement, Walking Alleviating Symptom(s): Position Associated Signs And Symptoms: Positive: Other - hematuria. Negative: Abdominal Pain - Allergies/Home Medications Allergies/Adverse Reactions: Allergies Allergy/AdvReac Type Severity Reaction Status Date / Time No Known Allergies Allergy Verified 09/30/17 11:49 Home Medications: Home Medications Celebrex 50 MG CAP 50 mg PO DAILY 04/16/18 [History Confirmed 04/16/18] Dextroamp-Amphetamin 10 mg Tab 10 mg PO DAILY 04/16/18 [History Confirmed ] Liothyronine Sodium 25 mcg PO DAILY 04/16/18 [History Confirmed 04/16/18] Topamax 25 MG tab 25 mg PO DAILY 04/16/18 [History Confirmed 04/16/18] Valium 10 mg PO DAILY 04/16/18 [History Confirmed 04/16/18] Vyvanse 20 mg PO DAILY 04/16/18 [History Confirmed 04/16/18] PMH/Surg Hx/FS Hx/Imm Hx Previously Healthy: No Endocrine/Hematology History: Denies: Hx Diabetes Cardiovascular History: Denies: Hx Hypertension, Hx Pacemaker/ICD, Other Cardiovascular Problems/ Disorders Respiratory History: Denies: Hx Asthma, Other Respiratory Problems/Disorders GI History: Denies: Other GI Disorders History: Denies: Hx Renal Disease, Other Problems/Disorders Musculoskeletal History: Reports: Hx Fibromyalgia, Other Musculoskeletal History - Backaches for the last 8 months, sees a chiropractor Sensory History: Denies: Hx Contacts or Glasses, Hx Hearing Aid Opthamlomology History: Denies: Hx Contacts or Glasses Neurological History: Reports: Hx Headaches, Hx Migraine - takes motrin on occasion for migraines, Other Neuro Impairments/Disorders - changes in white brain matter, patient states could be demyelinating diseas Psychiatric History: Denies: Hx Panic Disorder - Surgical History Surgery Procedure, Year, and Place: LASIX - EYE 2014. HEMORROIDECTOMY 2006 Hx Anesthesia Reactions: No Infectious Disease History: No Infectious Disease History: Denies: Traveled Outside the [place] in Last 30 Days - Family History Known Family History: Negative: Cardiac Disease - Social History Alcohol Use: None Substance Use Type: Reports: Marijuana Substance Use Comment - Amount & Last Used: prescribed tincture of THC/CBD oil for pain Smoking Status (MU): Never Smoked Tobacco Review of Systems Negative: Abdominal Pain Positive: hematuria Positive: Myalgia All Other Systems Reviewed And Are Negative: Yes Physical Exam - Summary Physical Exam Summary: Appearance: The patient is well-nourished in no acute distress and in no acute pain. Skin: The skin is warm and dry and skin color reflects adequate perfusion HEENT: The head is normocephalic and atraumatic. The pupils are equal and reactive. The conjunctivae are clear and without drainage. Nares are patent and without drainage. Mouth reveals moist mucous membranes and the throat is without erythema and exudate. The external ears are intact. The ear canals are patent and without drainage. The tympanic membranes are intact. Neck: The neck is supple with full range of motion and non-tender. There are no carotid bruits. There is no neck vein distension. Respiratory: Chest is non-tender. Lungs are clear to auscultation and breath sounds are symmetrical and equal. Cardiovascular: Heart is regular rate and rhythm. There is no murmur or rub auscultated. There is no peripheral edema and pulses are symmetrical and equal. Abdomen: The abdomen is soft and non-tender. There are normal bowel sounds heard in all four quadrants and there is no organomegaly palpated. Musculoskeletal: There is no back tenderness noted. Extremities are non-tender with full range of motion. There is good capillary refill. There is no peripheral edema or calf tenderness elicited. Neurological: Patient is alert and oriented to person, place and time. The patient has symmetrical motor strength in all four extremities. Cranial nerves are grossly intact. Deep tendon reflexes are symmetrical and equal in all four extremities. Psychiatric: The patient has an appropriate affect and does not exhibit any anxiety or depression. Triage Information Reviewed: Yes Vital Signs On Initial Exam: Initial Vitals Temp Pulse Resp BP Pulse Ox 97.6 F 83 18 148/90 100 04/16/18 11:33 04/16/18 11:33 04/16/18 11:33 04/16/18 11:33 04/16/18 11:33 Vital Signs Reviewed: Yes Diagnostics - Vital Signs Vital Signs Temp Pulse Resp BP Pulse Ox 04/16/18 13:55 98.3 F 62 16 118/77 100 04/16/18 11:33 97.6 F 83 18 148/90 100 - Laboratory Lab Results: Lab Results 04/16/18 04/16/18 04/16/18 Range/Units 11:47 13:45 13:45 WBC 9.0 (3.5-10.8) 10^3/ul RBC 5.08 (4.00-5.40) 10^6/ul Hgb 13.4 (12.0-16.0) g/dl Hct 41 (35-47) % MCV 82 (80-97) fL MCH 26 L (27-31) pg MCHC 32 (31-36) g/dl RDW 15 (10.5-15) % Plt Count 189 (150-450) 10^3/ul MPV 10.7 H (7.4-10.4) fL Neut % (Auto) 72.8 % Lymph % (Auto) 18.8 % Carbon % (Auto) 6.1 % Eos % (Auto) 1.8 % Baso % (Auto) 0.5 % Absolute Neuts (auto) 6.6 (1.5-7.7) 10^3/ul Absolute Lymphs (auto) 1.7 (1.0-4.8) 10^3/ul Absolute Monos (auto) 0.6 (0-0.8) 10^3/ul Absolute Eos (auto) 0.2 (0-0.6) 10^3/ul Absolute Basos (auto) 0 (0-0.2) 10^3/ul Absolute Nucleated RBC 0 10^3/ul Nucleated RBC % 0 Sodium 134 L (135-145) mmol/L Potassium 4.0 (3.5-5.0) mmol/L Chloride 104 (101-111) mmol/L Carbon Dioxide 23 (22-32) mmol/L Anion Gap 7 (2-11) mmol/L BUN 9 (6-24) mg/dL Creatinine 0.78 (0.51-0.95) mg/dL Est GFR ( Amer) 99.0 (>60) Est GFR (Non-Af Amer) 81.8 (>60) BUN/Creatinine Ratio 11.5 (8-20) Glucose 125 H (70-100) mg/dL Calcium 9.3 (8.6-10.3) mg/dL Total Bilirubin 0.40 (0.2-1.0) mg/dL AST 15 (13-39) U/L ALT 10 (7-52) U/L Alkaline Phosphatase 39 (34-104) U/L Total Protein 7.5 (6.4-8.9) g/dL Albumin 4.4 (3.2-5.2) g/dL Globulin 3.1 (2-4) g/dL Albumin/Globulin Ratio 1.4 (1-3) Urine Color Straw Urine Appearance Clear Urine pH 6.0 (5-9) Ur Specific [place] 1.003 L (1.010-1.030) Urine Protein Negative (Negative) Urine Ketones Negative (Negative) Urine Blood Negative (Negative) Urine Nitrate Negative (Negative) Urine Bilirubin Negative (Negative) Urine Urobilinogen Negative (Negative) Ur Leukocyte Esterase Negative (Negative) Urine Glucose Negative (Negative) Result Diagrams: 04/16/18 13:45 04/16/18 13:45 Lab Statement: Any lab studies that have been ordered have been reviewed, and results considered in the medical decision making process. - CT Abd/pelv CT CT Interpretation Completed By: Radiologist Summary of CT Findings: No evidence of obstructive uropathy is noted. ED physician has reviewed this report. Back Pain Course/Dx - Course Course Of Treatment: Ms. Kumari presented with a concern for having seen bright red blood in her urine 2 days ago. He was accompanied by some back pain. She has had similar problems in the past whenever she took Topamax which she takes intermittently. This time she took it 2 days in a row. She was in no apparent distress and nontoxic in appearance with stable vital signs were I saw her. Laboratory workup was unremarkable including a UA. Topamax can cause kidney stones and a CT was obtained which was unremarkable. I recommended she follow up with her PCP. - Diagnoses Provider Diagnoses: Hematuria Discharge - Sign-Out/Discharge Documenting (check all that apply): Patient Departure - Discharge Plan Condition: Stable Disposition: HOME Referrals: Cathi Anderson MD [Primary Care Provider] - Wojciech Mcarthur MD [Medical Doctor] - Additional Instructions: Please return to the emergency department with any new or worsening symptoms. Follow up with your primary care physician and Dr. Mcarthur in the next 2-3 days. - Billing Disposition and Condition Condition: STABLE Disposition: Home - Attestation Statements Document Initiated by Josefina: Yes Documenting Scribe: Susan Styles Provider For Whom Josefina is Documenting (Include Credential): Luis Antonio Otto MD. Scribe Attestation: I, Susan Styles, edwined for Luis Antonio Otto MD. on 04/16/18 at 1759. Scribe Documentation Reviewed: Yes Provider Attestation: The documentation as recorded by the brigitteibeSusan accurately reflects the service I personally performed and the decisions made by me, Luis Antonio Otto MD. Status of Scribe Document: Viewed
[2018-04-16 17:28] VITALS: BP 109/77
== END | disposition home or self-care (01) ==
LOC: ED 11:31
DX: R31.9 Hematuria, unspecified (principal); M54.9 Dorsalgia, unspecified
CPT/HCPCS: 36415; 74176; 80053; 81003; 85025; 99282

== ENCOUNTER 2018-10-05 16:10 | Emergency (ER) | payer BC ==
[2018-10-05] MEDS ORDERED: Ofloxacin 0.3% (Ear Drop)* 5 ml BTL RIGHT EAR ONE (18:56)
--- NOTE | 2018-10-05 19:15 | ED ---
Throat Pain/Nasal Congestion - HPI Summary HPI Summary: Patient complains of right ear pain 2 days. States history of recent ear infection in [place] and was given antibiotic ear drops with improvement in symptoms. Pain returned yesterday. Denies fever, cough, sore throat, CP, SOB, N/V/D, abdominal pain, change in urine, change in BM. - History of Current Complaint Chief Complaint: EDEarPain Time Seen by Provider: 10/05/18 18:16 Hx Obtained From: Patient Onset/Duration: Sudden Onset, Lasting Days Severity: Moderate Associated Signs And Symptoms: Positive: Negative Cough: None - Allergies/Home Medications Allergies/Adverse Reactions: Allergies Allergy/AdvReac Type Severity Reaction Status Date / Time gluten Allergy GI Upset Verified 10/05/18 18:30 PMH/Surg Hx/FS Hx/Imm Hx Endocrine/Hematology History: Denies: Hx Diabetes Cardiovascular History: Denies: Hx Hypertension, Hx Pacemaker/ICD, Other Cardiovascular Problems/ Disorders Respiratory History: Denies: Hx Asthma, Other Respiratory Problems/Disorders GI History: Denies: Other GI Disorders History: Denies: Hx Renal Disease, Other Problems/Disorders Musculoskeletal History: Reports: Hx Fibromyalgia, Other Musculoskeletal History - Backaches for the last 8 months, sees a chiropractor Sensory History: Denies: Hx Contacts or Glasses, Hx Hearing Aid Opthamlomology History: Denies: Hx Contacts or Glasses Neurological History: Reports: Hx Headaches, Hx Migraine - takes motrin on occasion for migraines, Other Neuro Impairments/Disorders - changes in white brain matter, patient states could be demyelinating diseas Psychiatric History: Denies: Hx Panic Disorder - Surgical History Surgery Procedure, Year, and Place: LASIX - EYE 2014. HEMORROIDECTOMY 2005 Hx Anesthesia Reactions: No Infectious Disease History: No Infectious Disease History: Reports: Traveled Outside the [place] in Last 30 Days - [place] - Family History Known Family History: Negative: Cardiac Disease - Social History Alcohol Use: None Substance Use Type: Reports: Marijuana Substance Use Comment - Amount & Last Used: prescribed tincture of THC/CBD oil for pain Smoking Status (MU): Never Smoked Tobacco Review of Systems Constitutional: Negative Eyes: Negative Positive: Ear Ache Cardiovascular: Negative Respiratory: Negative Gastrointestinal: Negative Genitourinary: Negative Musculoskeletal: Negative Skin: Negative Neurological: Negative Psychological: Normal All Other Systems Reviewed And Are Negative: Yes Physical Exam - Summary Physical Exam Summary: Apparent yeast infection on right TM. ENT exam otherwise unremarkable. Triage Information Reviewed: Yes Vital Signs On Initial Exam: Initial Vitals Temp Pulse Resp BP Pulse Ox 100.8 F 76 16 128/79 100 10/05/18 16:21 10/05/18 16:21 10/05/18 16:21 10/05/18 16:21 10/05/18 16:21 Vital Signs Reviewed: Yes Appearance: Positive: Well-Appearing Skin: Positive: Warm Head/Face: Positive: Normal Head/Face Inspection Eyes: Positive: Normal ENT: Positive: Other Neck: Positive: Supple Respiratory/Lung Sounds: Positive: Clear to Auscultation Cardiovascular: Positive: Normal Abdomen Description: Positive: Nontender Musculoskeletal: Positive: Normal Neurological: Positive: Normal Psychiatric: Positive: Normal AVPU Assessment: Alert - [place] Coma Scale Best Eye Response: 4 - Spontaneous Best Motor Response: 6 - Obeys Commands Best Verbal Response: 5 - Oriented Coma Scale Total: 15 Diagnostics - Vital Signs Vital Signs Temp Pulse Resp BP Pulse Ox 10/05/18 16:21 100.8 F 76 16 128/79 100 - Laboratory Lab Statement: Any lab studies that have been ordered have been reviewed, and results considered in the medical decision making process. EENT Course/Dx - Course Course Of Treatment: Patient complains of right ear pain 2 days. States history of recent ear infection in [place] and was given antibiotic ear drops with improvement in symptoms. Pain returned yesterday. Denies fever, cough, sore throat, CP, SOB, N/V/D, abdominal pain, change in urine, change in BM. Vital signs within normal limits. Discussed patient with ENT clinician oncology Dr. Marr who recommended ofloxacin antibiotic drops and clotrimazole solution drops in ear and follow-up in clinic tomorrow. Ofloxacin antibiotic drops administered here in the ED. clotrimazole solution drops not available here but pharmacy states they're available [id number] at pharmacy. Patient advised to pick them up at the pharmacy tomorrow after calling ENT. Patient understands and approves of plan. - Diagnoses Provider Diagnoses: Otomycosis of right ear Discharge - Sign-Out/Discharge Documenting (check all that apply): Patient Departure Patient Received Moderate/Deep Sedation with Procedure: No - Discharge Plan Condition: Stable Disposition: HOME Patient Education Materials: Otitis Externa (ED) Referrals: Cathi Anderson MD [Primary Care Provider] - Wojciech Marr MD [Medical Doctor] - Additional Instructions: Allergies 10 drops of ofloxacin antibiotic drops in your right ear once daily for 7 days. Go to pharmacy and ask your pharmacist for [id number] clotrimazole 1% solution to use as eardrops for fungal infection. Follow up with ENT Dr. Marr for further evaluation. - Billing Disposition and Condition Condition: STABLE Disposition: Home
[2018-10-05 19:41] VITALS: BP 99/56
== END 2018-10-05 19:40 | disposition home or self-care (01) ==
LOC: ED 16:10
DX: B36.9 Superficial mycosis, unspecified (principal); H62.41 Otitis externa in other diseases classified elsewhere, right ear
CPT/HCPCS: 99282; A9270-GY